=== PATIENT | female | born 1945 | race Caucasian/White ===

== ENCOUNTER → 2023-04-13 | Outpatient (CLI) | payer MEDICARE | LOC: M RAD 12:21 | PROVIDERS: ATTEND Registered Nurse Community Health | DX: Z12.2 Encounter for screening for malignant neoplasm of respiratory organs (principal); F17.210 Nicotine dependence, cigarettes, uncomplicated ==

== ENCOUNTER 2023-07-09 09:37 | Emergency (ER) | payer MEDICARE ==
[~2023-07-09] VITALS: Ht 157.5 cm; Wt 51.4 kg
[2023-07-09 11:45] LABS: VENOUS BASE EXCESS -0.3 (-2.0-2.0); VENOUS HCO3 25.4 MMOL/L (23.0-27.0); VENOUS O2 SATURATION 66.8 % (60.0-80.0); VENOUS PARTIAL PRESSURE CO2 45.4 mmHg (38.0-50.0); VENOUS PARTIAL PRESSURE O2 35.8 mmHg (30.0-50.0); VENOUS PH 7.366 UNITS (7.330-7.430); VENOUS STANDARD HCO3 23.5 MMOL/L; VENOUS TOTAL CO2 26.8 MMOL/L (24.0-28.0)
[2023-07-09 11:53] LABS: BASO # 0.1 10^3/uL (0.0-0.2); EOS % 0.4 % (0.0-3.0); HEMATOCRIT 42.2 % (36.0-47.0); HEMOGLOBIN 14.1 g/dl (12.0-15.5); LYMPH # 1.1 10^3/uL (1.5-5.0); LYMPH % 15.2 % (24.0-44.0); MEAN CORPUSCULAR HEMOGLOBIN 31.9 pg (27.0-33.0); MEAN CORPUSCULAR HGB CONC 33.4 g/dl (32.0-36.5); MEAN CORPUSCULAR VOLUME 95.5 fl (80.0-96.0); MONO # 0.6 10^3/uL (0.0-0.8); MONO % 8.4 % (2.0-8.0); NEUTROPHILS # 5.2 10^3/uL (1.5-8.5); NEUTROPHILS % 74.7 % (36.0-66.0); PLATELET COUNT, AUTOMATED 213 10^3/uL (150-450); RED BLOOD COUNT 4.42 10^6/uL (4.00-5.40)
[2023-07-09 12:15] LABS: OSMOLALITY SERUM 288 MOSM/KG (280-301)
[2023-07-09 12:19] LABS: ALBUMIN 3.4 G/DL (3.2-5.2); ALKALINE PHOSPHATASE 92 U/L (46-116); ALT/SGPT < 9 U/L (7.0-40); AST/SGOT 11 U/L (<34); BILIRUBIN,DIRECT 0.1 MG/DL (<0.4); BILIRUBIN,TOTAL 0.4 MG/DL (0.3-1.2); BLOOD UREA NITROGEN 8 MG/DL (9-23); CALCIUM LEVEL 9.1 MG/DL (8.3-10.6); CARBON DIOXIDE LEVEL 27 MMOL/L (20-31); CHLORIDE LEVEL 109 MMOL/L (98-107); CREATININE FOR GFR 0.49 MG/DL (0.55-1.30); GLOMERULAR FILTRATION RATE > 60.0 (>39); GLUCOSE, FASTING 98 MG/DL (74-106); SODIUM LEVEL 143 MMOL/L (136-145)
[2023-07-09 12:21] LABS: THYROID STIMULATING HORMONE 0.321 uIU/ML (0.55-4.78)
[2023-07-09 13:39] LABS: CK-MB VALUE MASS 1.1 NG/ML (<3.6)
[2023-07-09 13:41] LABS: MB/CK RELATIVE INDEX 1.74 (< OR =4)
[2023-07-09 13:58] LABS: CK-MB VALUE MASS 1.1 NG/ML (<3.6)
[2023-07-09 14:04] LABS: CPK CREATINE PHOSPHOKINASE 70 U/L (34-145); MB/CK RELATIVE INDEX 1.57 (< OR =4)
[2023-07-09] MEDS ORDERED: NS 500 ML IV ONE (14:05)
[2023-07-09 17:15] VITALS: BP 123/62; TEMP 99; O2SAT 97
== END 2023-07-09 17:28 | disposition home or self-care (01) ==
LOC: M ED 09:37
DX: R53.1 Weakness (principal); I10 Essential (primary) hypertension; E78.5 Hyperlipidemia, unspecified; E03.9 Hypothyroidism, unspecified; K21.9 Gastro-esophageal reflux disease without esophagitis; F17.290 Nicotine dependence, other tobacco product, uncomplicated

== ENCOUNTER → 2023-07-09 | Outpatient (REF) | payer MEDICARE | LOC: M LAB REF 11:58 | PROVIDERS: ATTEND Internal Medicine | DX: R19.4 Change in bowel habit (principal) ==

== ENCOUNTER → 2023-07-24 | Outpatient (CLI) | payer MEDICARE ==
[~2023-07-24] MED LIST: GASTROGRAFIN SOLUTION 30ML As Ordered ONE; ISOVUE-370 76% 100ML VIAL As Ordered ONE
== END ==
LOC: M RAD 08:57
PROVIDERS: ATTEND Internal Medicine
DX: R63.4 Abnormal weight loss (principal); R68.81 Early satiety; K59.00 Constipation, unspecified; K80.20 Calculus of gallbladder without cholecystitis without obstruction
CPT/HCPCS: 74177; Q9963; Q9967

== ENCOUNTER → 2023-08-04 | Outpatient (REF) | payer MEDICARE | LOC: M LAB REF 12:48 | PROVIDERS: ATTEND Internal Medicine | DX: N93.8 Other specified abnormal uterine and vaginal bleeding (principal) ==

== ENCOUNTER → 2023-08-10 | Outpatient (CLI) | payer MEDICARE | LOC: M WHC 12:07 | PROVIDERS: ATTEND Internal Medicine | DX: N93.8 Other specified abnormal uterine and vaginal bleeding (principal) ==

== ENCOUNTER → 2023-08-11 | Outpatient (REF) | payer OTHER, MEDICARE | LOC: M PLALAB 16:00 | PROVIDERS: ATTEND Obstetrics & Gynecology | DX: C53.9 Malignant neoplasm of cervix uteri, unspecified (principal) ==

== ENCOUNTER 2023-09-03 11:18 | Day surgery (SDC) | payer MEDICARE ==
[~2023-09-03] VITALS: Ht 160 cm; Wt 54.9 kg
[~2023-09-03 11:18] MED LIST changes: +BIOT1CAP2 PO; +CAPT1TAB17 PO; -GASTROGRAFIN SOLUTION 30ML As Ordered ONE; -ISOVUE-370 76% 100ML VIAL As Ordered ONE; +LEVO100T5 PO; +NS 1,000 ML IV ONE; +OMEP-173 PO; +POTA-141 PO; +PRES1CAP PO; +SIMV40TA20 PO
[2023-09-03 14:05] VITALS: TEMP 97.1
[2023-09-03 14:20] VITALS: BP 103/60; O2SAT 97
[2023-09-07] MEDS ORDERED: B-12100021 PO (08:14)
[2023-09-07] MEDS ORDERED: ATIV1TAB7 PO (10:05)
== END 2023-09-03 15:00 | disposition home or self-care (01) ==
LOC: M OPP 11:18
PROVIDERS: ATTEND Internal Medicine Gastroenterology
DX: R19.5 Other fecal abnormalities (principal); Z80.0 Family history of malignant neoplasm of digestive organs; K63.5 Polyp of colon; K57.30 Diverticulosis of large intestine without perforation or abscess without bleeding; K64.8 Other hemorrhoids; K22.70 Barrett's esophagus without dysplasia; K31.A19 Gastric intestinal metaplasia without dysplasia, unspecified site; K44.9 Diaphragmatic hernia without obstruction or gangrene; G47.30 Sleep apnea, unspecified; Z99.89 Dependence on other enabling machines and devices; F17.200 Nicotine dependence, unspecified, uncomplicated; Z79.02 Long term (current) use of antithrombotics/antiplatelets; Z79.83 Long term (current) use of bisphosphonates; Z79.899 Other long term (current) drug therapy; Z86.73 Personal history of transient ischemic attack (TIA), and cerebral infarction without residual deficits

== ENCOUNTER → 2023-09-04 | Outpatient (CLI) | payer MEDICARE ==
[~2023-09-04] MED LIST changes: +ATIV1TAB7 PO; +B-12100021 PO; -NS 1,000 ML IV ONE
== END ==
LOC: M PLARAD 13:11
PROVIDERS: ATTEND Internal Medicine
DX: D48.7 Neoplasm of uncertain behavior of other specified sites (principal); N93.8 Other specified abnormal uterine and vaginal bleeding; N85.8 Other specified noninflammatory disorders of uterus; K44.9 Diaphragmatic hernia without obstruction or gangrene

== ENCOUNTER → 2023-09-07 | Outpatient (CLI) | payer MEDICARE | LOC: M ONCR 08:16 | PROVIDERS: ATTEND General Practice | DX: C53.8 Malignant neoplasm of overlapping sites of cervix uteri (principal); F17.210 Nicotine dependence, cigarettes, uncomplicated; Z71.2 Person consulting for explanation of examination or test findings; Z79.899 Other long term (current) drug therapy; Z80.8 Family history of malignant neoplasm of other organs or systems ==

== ENCOUNTER → 2023-09-14 | Outpatient (CLI) | payer MEDICARE | LOC: M WHC 13:52 | PROVIDERS: ATTEND Internal Medicine Medical Oncology | DX: N63.14 Unspecified lump in the right breast, lower inner quadrant (principal); R59.0 Localized enlarged lymph nodes | CPT/HCPCS: 76641; 77066; G0279 ==

== ENCOUNTER 2023-09-16 10:29 | Outpatient (RCR) | payer MEDICARE | END 2023-09-29 | LOC: M ONCR 10:29 | PROVIDERS: ATTEND General Practice | DX: Z51.0 Encounter for antineoplastic radiation therapy (principal); C53.8 Malignant neoplasm of overlapping sites of cervix uteri ==

== ENCOUNTER → 2023-10-08 | Outpatient (CLI) | payer MEDICARE ==
[2023-10-08 11:32] VITALS: TEMP 96.8
[2023-10-08 12:35] VITALS: BP 106/64; O2SAT 98
== END ==
LOC: M WHCPRO 09:50
PROVIDERS: ATTEND Internal Medicine Medical Oncology
DX: N63.41 Unspecified lump in right breast, subareolar (principal)
CPT/HCPCS: 10035; 19083; 38505; 77065; 88300; 88305; A4648

== ENCOUNTER → 2023-10-12 | Outpatient (CLI) | payer MEDICARE | LOC: M PLARAD 11:03 | PROVIDERS: ATTEND General Practice | DX: C53.8 Malignant neoplasm of overlapping sites of cervix uteri (principal) | CPT/HCPCS: 78815; A9552 ==

== ENCOUNTER → 2023-10-13 | Outpatient (CLI) | payer MEDICARE ==
[~2023-10-13] VITALS: Ht 157.5 cm; Wt 53.2 kg
[~2023-10-13] MED LIST changes: +HEPARIN SOD (PORCINE) 5000UNITS/ML 1ML VIAL/SYRINGE As Ordered ONE; +LIDOCAINE 1% MDV 20ML VIAL As Ordered ONE; +LIDOCAINE W/EPINEPHRINE 1% 20ML VIAL As Ordered ONE; +MIDAZOLAM INJ 2MG/2ML VIAL As Ordered ONE; +NS 1,000 ML IV SCH; +ceFAZolin 2 GM/D5W 50 ML IV BAG As Ordered ONE; +ceFAZolin SOD 2 GM in IV 1 EA IV ONE; +fentaNYL 100 MCG/2 ML INJECTION As Ordered ONE
[2023-10-13 13:24] VITALS: TEMP 97.8
[2023-10-13 15:30] VITALS: BP 132/61; O2SAT 96
== END ==
LOC: M IRPRO 12:45
PROVIDERS: ATTEND Internal Medicine Medical Oncology
DX: C53.0 Malignant neoplasm of endocervix (principal)
CPT/HCPCS: 36571; 99152; 99153; J0690; J2250; J3010

== ENCOUNTER → 2023-10-20 | Outpatient (CLI) | payer MEDICARE ==
[~2023-10-20] MED LIST changes: -HEPARIN SOD (PORCINE) 5000UNITS/ML 1ML VIAL/SYRINGE As Ordered ONE; -LIDOCAINE 1% MDV 20ML VIAL As Ordered ONE; -LIDOCAINE W/EPINEPHRINE 1% 20ML VIAL As Ordered ONE; -MIDAZOLAM INJ 2MG/2ML VIAL As Ordered ONE; -NS 1,000 ML IV SCH; -ceFAZolin 2 GM/D5W 50 ML IV BAG As Ordered ONE; -ceFAZolin SOD 2 GM in IV 1 EA IV ONE; -fentaNYL 100 MCG/2 ML INJECTION As Ordered ONE
== END ==
LOC: M ONCM 09:13
PROVIDERS: ATTEND Dietitian, Registered
DX: C53.9 Malignant neoplasm of cervix uteri, unspecified (principal); Z68.21 Body mass index [BMI] 21.0-21.9, adult; Z85.3 Personal history of malignant neoplasm of breast; Z71.3 Dietary counseling and surveillance

== ENCOUNTER → 2023-10-29 | Outpatient (RCR) | payer MEDICARE | LOC: M ONCR 10-05 07:51 | PROVIDERS: ATTEND General Practice | DX: Z51.0 Encounter for antineoplastic radiation therapy (principal); C53.8 Malignant neoplasm of overlapping sites of cervix uteri ==

== ENCOUNTER → 2023-11-04 | Outpatient (CLI) | payer MEDICARE ==
[~2023-11-04] MED LIST changes: +E-Z-GAS II EFFERVESCENT PACKET (SODIUM BICARB./CITRIC ACID/SIMETHICONE) As Ordered ONE; +E-Z-HD 98% w/w 340GM SUSP BTL As Ordered ONE; +E-Z-PAQUE 96% w/w SUSP 176GM BTL As Ordered ONE; +ESSE250T PO
== END ==
LOC: M RAD 10:13
PROVIDERS: ATTEND Internal Medicine Gastroenterology
DX: K21.9 Gastro-esophageal reflux disease without esophagitis (principal); K44.9 Diaphragmatic hernia without obstruction or gangrene; K57.11 Diverticulosis of small intestine without perforation or abscess with bleeding

== ENCOUNTER 2023-11-18 07:47 | Outpatient (RCR) | payer MEDICARE ==
[~2023-11-18 07:47] MED LIST changes: -E-Z-GAS II EFFERVESCENT PACKET (SODIUM BICARB./CITRIC ACID/SIMETHICONE) As Ordered ONE; -E-Z-HD 98% w/w 340GM SUSP BTL As Ordered ONE; -E-Z-PAQUE 96% w/w SUSP 176GM BTL As Ordered ONE
== END 2023-11-29 ==
LOC: M ONCR 07:47
PROVIDERS: ATTEND General Practice
DX: Z51.0 Encounter for antineoplastic radiation therapy (principal); C53.8 Malignant neoplasm of overlapping sites of cervix uteri

== ENCOUNTER → 2023-12-03 | Outpatient (CLI) | payer MEDICARE ==
[~2023-12-03] MED LIST changes: +PROHANCE 279.3MG/ML 5ML VIAL ONE
== END ==
LOC: M PLAIMG 09:17
PROVIDERS: ATTEND General Practice
DX: C53.8 Malignant neoplasm of overlapping sites of cervix uteri (principal); K57.90 Diverticulosis of intestine, part unspecified, without perforation or abscess without bleeding
CPT/HCPCS: 72197; A9576

== ENCOUNTER → 2024-01-28 | Outpatient (CLI) | payer MEDICARE ==
[~2024-01-28] MED LIST changes: +ARIC1TAB PO; +DEXA4TA PO; -PROHANCE 279.3MG/ML 5ML VIAL ONE
== END ==
LOC: M ONCR 14:50
PROVIDERS: ATTEND General Practice
DX: C50.111 Malignant neoplasm of central portion of right female breast (principal); C53.8 Malignant neoplasm of overlapping sites of cervix uteri; F03.90 Unspecified dementia, unspecified severity, without behavioral disturbance, psychotic disturbance, mood disturbance, and anxiety; F17.210 Nicotine dependence, cigarettes, uncomplicated; Z71.2 Person consulting for explanation of examination or test findings; Z79.52 Long term (current) use of systemic steroids; Z79.899 Other long term (current) drug therapy; Z90.11 Acquired absence of right breast and nipple; Z92.21 Personal history of antineoplastic chemotherapy; Z92.29 Personal history of other drug therapy; Z92.3 Personal history of irradiation

== ENCOUNTER → 2024-02-11 | Outpatient (CLI) | payer MEDICARE | LOC: M WHC 12:26 | PROVIDERS: ATTEND Internal Medicine Medical Oncology | DX: C50.911 Malignant neoplasm of unspecified site of right female breast (principal); Z17.0 Estrogen receptor positive status [ER+]; Z79.811 Long term (current) use of aromatase inhibitors ==

== ENCOUNTER → 2024-02-15 | Outpatient (CLI) | payer MEDICARE | LOC: M PLARAD 09:08 | PROVIDERS: ATTEND General Practice | DX: C53.8 Malignant neoplasm of overlapping sites of cervix uteri (principal) | CPT/HCPCS: 78815; A9552 ==

== ENCOUNTER → 2024-02-18 | Outpatient (CLI) | payer MEDICARE | LOC: M ONCR 11:35 | PROVIDERS: ATTEND General Practice | DX: C50.111 Malignant neoplasm of central portion of right female breast (principal); C53.8 Malignant neoplasm of overlapping sites of cervix uteri; F17.210 Nicotine dependence, cigarettes, uncomplicated; Z71.2 Person consulting for explanation of examination or test findings; Z79.52 Long term (current) use of systemic steroids; Z79.899 Other long term (current) drug therapy; Z90.11 Acquired absence of right breast and nipple; Z92.21 Personal history of antineoplastic chemotherapy; Z92.3 Personal history of irradiation; Z92.29 Personal history of other drug therapy; Z98.890 Other specified postprocedural states ==

== ENCOUNTER 2024-03-07 10:41 | Inpatient (IN) | payer MEDICARE ==
[~2024-03-07] VITALS: Ht 160 cm; Wt 52.6 kg
[~2024-03-07 10:41] MED LIST changes: +CEPH500C PO
[2024-03-07] MEDS ORDERED: ARIC1TAB PO (11:33)
[2024-03-07] MEDS ORDERED: LORA1TAB23 PO (11:33)
[2024-03-07] MEDS ORDERED: HOME MED LIST COMPLETE! XX SCH (11:35)
[2024-03-07] MEDS ORDERED: SODIUM CHLORIDE 0.9% INJ 10 ML SYR IV PRN (11:40)
[2024-03-07] MEDS ORDERED: ISOVUE-370 76% 100ML VIAL As Ordered ONE (12:15)
[2024-03-07 12:58] LABS: INR 1.14; PARTIAL THROMBOPLASTIN TIME 24.9 SECONDS (24.8-34.2); PROTHROMBIN TIME 14.2 SECONDS (12.5-14.5)
[2024-03-07 13:18] LABS: LIPASE 17 U/L (12-53)
[2024-03-07 13:20] LABS: ALBUMIN 2.3 G/DL (3.2-5.2); ALKALINE PHOSPHATASE 72 U/L (46-116); ALT/SGPT 11 U/L (7.0-40); AST/SGOT 12 U/L (<34); BILIRUBIN,DIRECT 0.2 MG/DL (<0.4); BILIRUBIN,TOTAL 0.4 MG/DL (0.3-1.2); BLOOD UREA NITROGEN 15 MG/DL (9-23); CALCIUM LEVEL 7.4 MG/DL (8.3-10.6); CARBON DIOXIDE LEVEL 30 MMOL/L (20-31); CHLORIDE LEVEL 102 MMOL/L (98-107); CK-MB VALUE MASS < 1.0 NG/ML (<3.6); CREATININE FOR GFR 0.48 MG/DL (0.55-1.30); GLOMERULAR FILTRATION RATE > 60.0 (>39); GLUCOSE, FASTING 104 MG/DL (74-106); SODIUM LEVEL 138 MMOL/L (136-145); TOTAL PROTEIN 4.6 G/DL (5.7-8.2)
[2024-03-07 13:21] LABS: CPK CREATINE PHOSPHOKINASE 25 U/L (34-145)
[2024-03-07 13:22] LABS: FREE T4 0.94 NG/DL (0.89-1.76); THYROID STIMULATING HORMONE 4.204 uIU/ML (0.55-4.78)
[2024-03-07 13:33] LABS: HEMATOCRIT 24.5 % (36.0-47.0); HEMOGLOBIN 8.4 g/dl (12.0-15.5); LYMPH # 0.1 10^3/uL (1.5-5.0); MEAN CORPUSCULAR HEMOGLOBIN 34.6 pg (27.0-33.0); MEAN CORPUSCULAR HGB CONC 34.3 g/dl (32.0-36.5); MEAN CORPUSCULAR VOLUME 100.8 fl (80.0-96.0); MONO % 12.5 % (2.0-8.0); NEUTROPHILS % 12.5 % (36.0-66.0); RED BLOOD COUNT 2.43 10^6/uL (4.00-5.40)
[2024-03-07 13:40] LABS: WHITE BLOOD COUNT 0.1 10^3/uL (4.0-10.0)
[2024-03-07 13:41] LABS: PLATELET COUNT, AUTOMATED 28 10^3/uL (150-450)
[2024-03-07 13:48] LABS: ERYTHROCYTE SEDIMENTATION RATE 19 mm/hr (0-30)
[2024-03-07] MEDS: CEFEPIME HCL 2 GM in D5W MINI-BAG PLUS 50 ML IV ONE (13:59)
[2024-03-07] MEDS: NS 1,450 ML in IV 1 EA IV ONE (14:03)
[2024-03-07] MEDS ORDERED: MAALOX 30 ML SUSP *UDC PO PRN (15:10)
[2024-03-07] MEDS ORDERED: ACETAMINOPHEN TAB 650MG DOSE (2X325MG) PO PRN (15:10)
[2024-03-07] MEDS ORDERED: VANCOMYCIN HCL 1,000 MG, VIAL MATE ADAPTER 1 EACH in D5W 250 ML IV SCH (15:10)
[2024-03-07] MEDS: NS 1,000 ML IV SCH (15:34)
[2024-03-07] MEDS: FILGRASTIM 300MCG 0.5ML SYRINGE **SC ADMINISTRATION ONLY SC ONE (15:34)
[2024-03-07] MEDS ORDERED: AZITHROMYCIN INJ 500 MG, VIAL MATE ADAPTER 1 EACH in NS 250 ML IV SCH (15:50)
[2024-03-07] MEDS ORDERED: LORazepam 1 MG TAB PO PRN (16:00)
[2024-03-07 16:25] LABS: MAGNESIUM LEVEL 1.1 MG/DL (1.8-2.4)
[2024-03-07 16:39] LABS: PROCALCITONIN 0.06 ng/ml
[2024-03-07] MEDS: AZITHROMYCIN 250MG TABLET PO SCH (17:31)
[2024-03-07] MEDS: POTASSIUM CHLORIDE 10MEQ SR TABLET PO ONE ×2 (17:32→18:47)
[2024-03-07] MEDS: VANCOMYCIN HCL 1,000 MG, VIAL MATE ADAPTER 1 EACH in D5W 250 ML IV ONE (17:32)
[2024-03-07] MEDS: MAG SULF 1GM/100ML (MAG RUN) 1 GM in IV 1 EA IV SCH (18:47)
[2024-03-07 21:24] VITALS: BP 104/61; TEMP 100; O2SAT 93
[2024-03-07 22:51] VITALS: BP 185/77
[2024-03-07] MEDS: CEFEPIME HCL 2 GM in D5W MINI-BAG PLUS 50 ML IV SCH (23:02)
[2024-03-08] MEDS: VANCOMYCIN HCL 750 MG, VIAL MATE ADAPTER 1 EACH in D5W 250 ML IV SCH (00:33)
[2024-03-08 00:38] VITALS: BP 112/55; TEMP 98.9; O2SAT 96
[2024-03-08 04:00] VITALS: BP 103/60; TEMP 99.6; O2SAT 93
[2024-03-08 04:13] LABS: HEMATOCRIT 25.1 % (36.0-47.0); HEMOGLOBIN 8.5 g/dl (12.0-15.5); LYMPH % 66.7 % (24.0-44.0); MEAN CORPUSCULAR HGB CONC 33.9 g/dl (32.0-36.5); MEAN CORPUSCULAR VOLUME 100.4 fl (80.0-96.0); MONO % 16.7 % (2.0-8.0); NEUTROPHILS % 16.6 % (36.0-66.0)
[2024-03-08 04:20] LABS: WHITE BLOOD COUNT 0.1 10^3/uL (4.0-10.0)
[2024-03-08 04:22] LABS: PLATELET COUNT, AUTOMATED 26 10^3/uL (150-450)
[2024-03-08 05:36] LABS: ALBUMIN 2.1 G/DL (3.2-5.2); ALKALINE PHOSPHATASE 68 U/L (46-116); ALT/SGPT 10 U/L (7.0-40); AST/SGOT 13 U/L (<34); BILIRUBIN,TOTAL 0.3 MG/DL (0.3-1.2); BLOOD UREA NITROGEN 9 MG/DL (9-23); CALCIUM LEVEL 7.4 MG/DL (8.3-10.6); CARBON DIOXIDE LEVEL 28 MMOL/L (20-31); CHLORIDE LEVEL 102 MMOL/L (98-107); CREATININE FOR GFR 0.46 MG/DL (0.55-1.30); GLOMERULAR FILTRATION RATE > 60.0 (>39); GLUCOSE, FASTING 119 MG/DL (74-106); MAGNESIUM LEVEL 1.9 MG/DL (1.8-2.4); POTASSIUM SERUM 3.5 MMOL/L (3.5-5.1); SODIUM LEVEL 134 MMOL/L (136-145); TOTAL PROTEIN 4.2 G/DL (5.7-8.2)
[2024-03-08 08:25] VITALS: BP 105/58; TEMP 99.4; O2SAT 96
[2024-03-08] MEDS: SIMVASTATIN 40 MG TAB PO SCH (10:32)
[2024-03-08] MEDS: OMEPRAZOLE 20MG CAP PO SCH (10:33)
[2024-03-08] MEDS: DONEPEZIL 5 MG TAB PO SCH (10:33)
[2024-03-08] MEDS: FILGRASTIM 300MCG 0.5ML SYRINGE **SC ADMINISTRATION ONLY SC SCH (11:24)
[2024-03-08 12:00] VITALS: BP 85/60; TEMP 98.3; O2SAT 96
[2024-03-08] MEDS: VANCOMYCIN HCL 500 MG in D5W MINI-BAG PLUS 100 ML IV ONE (15:52)
[2024-03-08 16:00] VITALS: BP 105/48; TEMP 98.8; O2SAT 98
[2024-03-08 20:04] VITALS: BP 98/49; TEMP 97.5; O2SAT 92
[2024-03-09 00:01] VITALS: BP 99/55; TEMP 97.5; O2SAT 92
[2024-03-09 04:09] VITALS: BP 100/56; TEMP 97.1; O2SAT 98
[2024-03-09 05:10] LABS: BASO % 7.7 % (0.0-1.0); HEMATOCRIT 24.4 % (36.0-47.0); HEMOGLOBIN 8.2 g/dl (12.0-15.5); LYMPH # 0.1 10^3/uL (1.5-5.0); LYMPH % 46.2 % (24.0-44.0); MEAN CORPUSCULAR HEMOGLOBIN 33.7 pg (27.0-33.0); MEAN CORPUSCULAR HGB CONC 33.6 g/dl (32.0-36.5); MEAN CORPUSCULAR VOLUME 100.4 fl (80.0-96.0); MONO % 30.8 % (2.0-8.0); NEUTROPHILS % 15.3 % (36.0-66.0); RED BLOOD COUNT 2.43 10^6/uL (4.00-5.40)
[2024-03-09 05:14] LABS: WHITE BLOOD COUNT 0.1 10^3/uL (4.0-10.0)
[2024-03-09 05:16] LABS: PLATELET COUNT, AUTOMATED 21 10^3/uL (150-450)
[2024-03-09 05:41] LABS: ALBUMIN 1.8 G/DL (3.2-5.2); ALKALINE PHOSPHATASE 59 U/L (46-116); ALT/SGPT 10 U/L (7.0-40); AST/SGOT 11 U/L (<34); BILIRUBIN,TOTAL 0.3 MG/DL (0.3-1.2); BLOOD UREA NITROGEN < 5 MG/DL (9-23); CALCIUM LEVEL 7.3 MG/DL (8.3-10.6); CARBON DIOXIDE LEVEL 27 MMOL/L (20-31); CHLORIDE LEVEL 110 MMOL/L (98-107); CREATININE FOR GFR 0.43 MG/DL (0.55-1.30); GLOMERULAR FILTRATION RATE > 60.0 (>39); GLUCOSE, FASTING 96 MG/DL (74-106); MAGNESIUM LEVEL 1.6 MG/DL (1.8-2.4); POTASSIUM SERUM 3.4 MMOL/L (3.5-5.1); SODIUM LEVEL 141 MMOL/L (136-145)
[2024-03-09 08:13] VITALS: BP 107/53; TEMP 97.6; O2SAT 98
[2024-03-09] MEDS: cefTRIAXone SOD 2 GM in D5W MINI-BAG PLUS 50 ML IV SCH (12:22)
[2024-03-09 16:00] VITALS: BP 117/60; TEMP 97.7; O2SAT 97
[2024-03-09 20:55] VITALS: BP 112/66; TEMP 97.9; O2SAT 96
[2024-03-10] VITALS (7 sets, daily range): BP systolic 80–104; BP diastolic 48–60; TEMP 97.7–98.8; O2SAT 94–100
[2024-03-10 06:24] LABS: BASO % 3.6 % (0.0-1.0); EOS % 1.8 % (0.0-3.0); HEMATOCRIT 25.5 % (36.0-47.0); HEMOGLOBIN 8.7 g/dl (12.0-15.5); LYMPH # 0.1 10^3/uL (1.5-5.0); LYMPH % 17.9 % (24.0-44.0); MEAN CORPUSCULAR HEMOGLOBIN 34.1 pg (27.0-33.0); MEAN CORPUSCULAR HGB CONC 34.1 g/dl (32.0-36.5); MONO # 0.2 10^3/uL (0.0-0.8); MONO % 41.1 % (2.0-8.0); NEUTROPHILS % 33.8 % (36.0-66.0); RED BLOOD COUNT 2.55 10^6/uL (4.00-5.40)
[2024-03-10 06:38] LABS: NEUTROPHILS # 0.2 10^3/uL (1.5-8.5)
[2024-03-10 06:40] LABS: WHITE BLOOD COUNT 0.6 10^3/uL (4.0-10.0)
[2024-03-10 06:41] LABS: PLATELET COUNT, AUTOMATED 33 10^3/uL (150-450)
[2024-03-10 06:49] LABS: ALBUMIN 1.9 G/DL (3.2-5.2); ALKALINE PHOSPHATASE 62 U/L (46-116); ALT/SGPT 14 U/L (7.0-40); AST/SGOT 10 U/L (<34); BILIRUBIN,TOTAL 0.2 MG/DL (0.3-1.2); BLOOD UREA NITROGEN 7 MG/DL (9-23); CALCIUM LEVEL 7.8 MG/DL (8.3-10.6); CARBON DIOXIDE LEVEL 26 MMOL/L (20-31); CHLORIDE LEVEL 107 MMOL/L (98-107); CREATININE FOR GFR 0.43 MG/DL (0.55-1.30); GLOMERULAR FILTRATION RATE > 60.0 (>39); GLUCOSE, FASTING 117 MG/DL (74-106); MAGNESIUM LEVEL 1.2 MG/DL (1.8-2.4); POTASSIUM SERUM 3.3 MMOL/L (3.5-5.1); SODIUM LEVEL 140 MMOL/L (136-145); TOTAL PROTEIN 4.2 G/DL (5.7-8.2)
[2024-03-10] MEDS: NS 1,000 ML IV ONE (07:35)
[2024-03-10] MEDS: POTASSIUM CHLORIDE 10MEQ SR TABLET PO SCH (08:56)
[2024-03-10] MEDS: MAG SULF 1GM/100ML (MAG RUN) 1 GM in IV 1 EA IV SCH (08:56)
[2024-03-10] MEDS: MAGNESIUM GLUCONATE 500 MG TAB PO SCH (09:57)
[2024-03-11 00:38] VITALS: BP 100/62; TEMP 98.5; O2SAT 96
[2024-03-11 04:05] VITALS: BP 103/59; TEMP 98; O2SAT 92
[2024-03-11 05:50] LABS: HEMATOCRIT 25.5 % (36.0-47.0); HEMOGLOBIN 8.6 g/dl (12.0-15.5); MEAN CORPUSCULAR HGB CONC 33.7 g/dl (32.0-36.5); MEAN CORPUSCULAR VOLUME 100.8 fl (80.0-96.0); RED BLOOD COUNT 2.53 10^6/uL (4.00-5.40); WHITE BLOOD COUNT 3.7 10^3/uL (4.0-10.0)
[2024-03-11 05:57] LABS: PLATELET COUNT, AUTOMATED 48 10^3/uL (150-450)
[2024-03-11 06:10] LABS: ALKALINE PHOSPHATASE 65 U/L (46-116); ALT/SGPT 15 U/L (7.0-40); AST/SGOT 10 U/L (<34); BILIRUBIN,TOTAL 0.2 MG/DL (0.3-1.2); BLOOD UREA NITROGEN 8 MG/DL (9-23); CALCIUM LEVEL 7.8 MG/DL (8.3-10.6); CARBON DIOXIDE LEVEL 28 MMOL/L (20-31); CHLORIDE LEVEL 109 MMOL/L (98-107); CREATININE FOR GFR 0.42 MG/DL (0.55-1.30); GLOMERULAR FILTRATION RATE > 60.0 (>39); GLUCOSE, FASTING 99 MG/DL (74-106); MAGNESIUM LEVEL 1.4 MG/DL (1.8-2.4); POTASSIUM SERUM 3.8 MMOL/L (3.5-5.1); SODIUM LEVEL 141 MMOL/L (136-145); TOTAL PROTEIN 4.3 G/DL (5.7-8.2)
[2024-03-11] MEDS: MAG SULF 1GM/100ML (MAG RUN) 1 GM in IV 1 EA IV SCH (06:32)
[2024-03-11 06:39] LABS: ANISOCYTOSIS 1+; ATYPICAL LYMPH 2 % (0-5); LYMPHOCYTES 11 % (16-44); METAMYELOCYTES 3 % (0-0); MONOCYTES 20 % (0-5); MYELOCYTES 1 % (0-0); NEUTROPHILS 57 % (28-66); PLATELET ESTIMATE MARKED DECREASE (NORMAL)
[2024-03-11 08:20] VITALS: BP 90/56; TEMP 97.8; O2SAT 91
[2024-03-11 11:35] VITALS: BP 92/58; TEMP 97.6; O2SAT 95
[2024-03-11 19:23] VITALS: BP 99/54; TEMP 98.5; O2SAT 92
[2024-03-11 21:23] VITALS: BP 111/56; TEMP 98.1; O2SAT 96
[2024-03-12 06:36] VITALS: BP 111/55; TEMP 98.1; O2SAT 97
[2024-03-12 07:15] LABS: BASO # 0.1 10^3/uL (0.0-0.2); BASO % 0.3 % (0.0-1.0); EOS % 0.2 % (0.0-3.0); HEMOGLOBIN 9.3 g/dl (12.0-15.5); LYMPH # 0.3 10^3/uL (1.5-5.0); LYMPH % 1.5 % (24.0-44.0); MEAN CORPUSCULAR HEMOGLOBIN 34.4 pg (27.0-33.0); MEAN CORPUSCULAR HGB CONC 33.2 g/dl (32.0-36.5); MEAN CORPUSCULAR VOLUME 103.7 fl (80.0-96.0); MONO % 13.7 % (2.0-8.0); NEUTROPHILS # 13.2 10^3/uL (1.5-8.5); NEUTROPHILS % 67.1 % (36.0-66.0); WHITE BLOOD COUNT 19.6 10^3/uL (4.0-10.0)
[2024-03-12 07:16] LABS: MONO # 2.7 10^3/uL (0.0-0.8); PLATELET COUNT, AUTOMATED 89 10^3/uL (150-450)
[2024-03-12 07:40] LABS: ALKALINE PHOSPHATASE 87 U/L (46-116); ALT/SGPT 13 U/L (7.0-40); AST/SGOT 11 U/L (<34); BILIRUBIN,TOTAL 0.2 MG/DL (0.3-1.2); BLOOD UREA NITROGEN 7 MG/DL (9-23); CALCIUM LEVEL 8.5 MG/DL (8.3-10.6); CARBON DIOXIDE LEVEL 30 MMOL/L (20-31); CHLORIDE LEVEL 106 MMOL/L (98-107); CREATININE FOR GFR 0.48 MG/DL (0.55-1.30); GLOMERULAR FILTRATION RATE > 60.0 (>39); GLUCOSE, FASTING 82 MG/DL (74-106); MAGNESIUM LEVEL 1.8 MG/DL (1.8-2.4); POTASSIUM SERUM 4.3 MMOL/L (3.5-5.1); SODIUM LEVEL 140 MMOL/L (136-145); TOTAL PROTEIN 4.6 G/DL (5.7-8.2)
[2024-03-12] MEDS ORDERED: PROBCAP14 PO (08:09)
[2024-03-12] MEDS ORDERED: CEFD1CAP9 PO (08:09)
== END 2024-03-12 10:50 | disposition home or self-care (01) | DRG 809 ==
LOC: EDBD 10:41 → M ED 11:04 → OBSVTOIN 15:06 → M ED INP 15:06 → UNDOADMOB 15:37 → M ED INP 15:37 → M PCU 21:33 → M ED INP 21:33 → M MS5PR 03-11 21:02
PROVIDERS: ADMIT Internal Medicine; ATTEND Internal Medicine Nephrology
DX: D70.9 Neutropenia, unspecified (principal); R78.81 Bacteremia; D61.810 Antineoplastic chemotherapy induced pancytopenia; F03.90 Unspecified dementia, unspecified severity, without behavioral disturbance, psychotic disturbance, mood disturbance, and anxiety; C50.911 Malignant neoplasm of unspecified site of right female breast; I10 Essential (primary) hypertension; E87.6 Hypokalemia; K21.9 Gastro-esophageal reflux disease without esophagitis; R19.7 Diarrhea, unspecified; E78.5 Hyperlipidemia, unspecified; K44.9 Diaphragmatic hernia without obstruction or gangrene; I34.0 Nonrheumatic mitral (valve) insufficiency; J43.9 Emphysema, unspecified; Z92.21 Personal history of antineoplastic chemotherapy; Z82.3 Family history of stroke; F41.9 Anxiety disorder, unspecified; Z96.20 Presence of otological and audiological implant, unspecified; C53.9 Malignant neoplasm of cervix uteri, unspecified; Z79.899 Other long term (current) drug therapy

== ENCOUNTER → 2024-04-01 | Outpatient (REF) | payer MEDICARE ==
[~2024-04-01] MED LIST changes: +CEFD1CAP9 PO; +LORA1TAB23 PO; +PROBCAP14 PO
[2024-04-01 18:28] LABS: EOSINOPHILS 1 % (0-3); MONOCYTES 2 % (0-5); NEUTROPHILS 90 % (28-66)
[2024-04-01 18:29] LABS: TOXIC GRANULATION 1+
[2024-04-01 18:31] LABS: PLATELET ESTIMATE NORMAL (NORMAL)
== END ==
LOC: M LAB REF 16:20
PROVIDERS: ATTEND Internal Medicine
DX: D72.9 Disorder of white blood cells, unspecified (principal); R06.02 Shortness of breath; R22.41 Localized swelling, mass and lump, right lower limb

== ENCOUNTER → 2024-04-01 | Outpatient (CLI) | payer MEDICARE | LOC: M WHC 14:36 | PROVIDERS: ATTEND Internal Medicine | DX: R22.41 Localized swelling, mass and lump, right lower limb (principal); D72.9 Disorder of white blood cells, unspecified; R06.02 Shortness of breath ==

== ENCOUNTER → 2024-04-18 | Outpatient (REF) | payer MEDICARE ==
[2024-04-18 18:25] LABS: C REACTIVE PROTEIN QUANTITATIV 2.6 MG/DL (<1.0)
[2024-04-18 18:26] LABS: PERCENT SATURATION 13.7 % (13.2-45.0)
[2024-04-18 18:27] LABS: FERRITIN 253.7 NG/ML (7.3-270.7)
== END ==
LOC: M LAB REF 16:13
PROVIDERS: ATTEND Internal Medicine
DX: R53.1 Weakness (principal); D50.9 Iron deficiency anemia, unspecified; T81.41XA Infection following a procedure, superficial incisional surgical site, initial encounter

== ENCOUNTER → 2024-05-19 | Outpatient (CLI) | payer MEDICARE | LOC: M ONCR 09:03 → EEVIPCON 10:00 | PROVIDERS: ATTEND General Practice | DX: C50.911 Malignant neoplasm of unspecified site of right female breast (principal); Z85.41 Personal history of malignant neoplasm of cervix uteri; F17.210 Nicotine dependence, cigarettes, uncomplicated; Z79.899 Other long term (current) drug therapy; Z71.2 Person consulting for explanation of examination or test findings; Z92.21 Personal history of antineoplastic chemotherapy; Z92.3 Personal history of irradiation; Z92.29 Personal history of other drug therapy; Z90.11 Acquired absence of right breast and nipple ==

== ENCOUNTER → 2024-05-23 | Outpatient (CLI) | payer MEDICARE | LOC: M PLAIMG 10:43 | PROVIDERS: ATTEND Internal Medicine | DX: R06.02 Shortness of breath (principal) ==

== ENCOUNTER → 2024-06-03 | Outpatient (CLI) | payer MEDICARE ==
[~2024-06-03] MED LIST changes: +PROHANCE 279.3MG/ML 5ML VIAL ONE
== END ==
LOC: M PLAIMG 09:14
PROVIDERS: ATTEND Internal Medicine
DX: C50.111 Malignant neoplasm of central portion of right female breast (principal); R41.3 Other amnesia; R90.89 Other abnormal findings on diagnostic imaging of central nervous system
CPT/HCPCS: 70553; A9576

== ENCOUNTER → 2024-06-14 | Outpatient (REF) | payer MEDICARE ==
[~2024-06-14] MED LIST changes: -PROHANCE 279.3MG/ML 5ML VIAL ONE
== END ==
LOC: M LAB REF 12:48
PROVIDERS: ATTEND Internal Medicine
DX: D64.9 Anemia, unspecified (principal)

== ENCOUNTER → 2024-06-14 | Outpatient (REF) | payer MEDICARE ==
[2024-06-15 13:44] LABS: EOSINOPHILS 3 % (0-3); LYMPHOCYTES 5 % (16-44); MONOCYTES 5 % (0-5); NEUTROPHILS 84 % (28-66)
[2024-06-15 13:45] LABS: ANISOCYTOSIS 1+
[2024-06-15 13:46] LABS: PLATELET ESTIMATE NORMAL (NORMAL)
== END ==
LOC: M LAB REF 12:31
PROVIDERS: ATTEND Internal Medicine
DX: D72.9 Disorder of white blood cells, unspecified (principal)

== ENCOUNTER → 2024-06-21 | Outpatient (CLI) | payer MEDICARE | LOC: M ONCR 10:14 | PROVIDERS: ATTEND General Practice | DX: C50.111 Malignant neoplasm of central portion of right female breast (principal); S21.109A Unspecified open wound of unspecified front wall of thorax without penetration into thoracic cavity, initial encounter; Z85.42 Personal history of malignant neoplasm of other parts of uterus; F17.210 Nicotine dependence, cigarettes, uncomplicated; Z79.899 Other long term (current) drug therapy; Z92.21 Personal history of antineoplastic chemotherapy; Z92.3 Personal history of irradiation; Z90.11 Acquired absence of right breast and nipple; Z79.811 Long term (current) use of aromatase inhibitors ==

== ENCOUNTER → 2024-07-29 | Outpatient (CLI) | payer MEDICARE | LOC: M ONCR 10:10 | PROVIDERS: ATTEND General Practice | DX: C50.111 Malignant neoplasm of central portion of right female breast (principal); S21.109A Unspecified open wound of unspecified front wall of thorax without penetration into thoracic cavity, initial encounter; Z85.42 Personal history of malignant neoplasm of other parts of uterus; F17.210 Nicotine dependence, cigarettes, uncomplicated; Z71.6 Tobacco abuse counseling; Z79.899 Other long term (current) drug therapy; Z90.11 Acquired absence of right breast and nipple; Z92.21 Personal history of antineoplastic chemotherapy; Z92.3 Personal history of irradiation | CPT/HCPCS: 99406; G0463 ==

== ENCOUNTER → 2024-08-30 | Outpatient (CLI) | payer MEDICARE ==
[~2024-08-30] MED LIST changes: +GASTROGRAFIN SOLUTION 30ML As Ordered ONE; +ISOVUE-370 76% 100ML VIAL As Ordered ONE
== END ==
LOC: M RAD 08:29
PROVIDERS: ATTEND General Practice
DX: C53.8 Malignant neoplasm of overlapping sites of cervix uteri (principal); J98.11 Atelectasis; J43.0 Unilateral pulmonary emphysema [MacLeod's syndrome]; K44.9 Diaphragmatic hernia without obstruction or gangrene; K57.30 Diverticulosis of large intestine without perforation or abscess without bleeding; K80.20 Calculus of gallbladder without cholecystitis without obstruction
CPT/HCPCS: 71260; 74177; Q9963; Q9967

== ENCOUNTER → 2024-09-06 | Outpatient (CLI) | payer MEDICARE ==
[~2024-09-06] MED LIST changes: -GASTROGRAFIN SOLUTION 30ML As Ordered ONE; -ISOVUE-370 76% 100ML VIAL As Ordered ONE
== END ==
LOC: M ONCR 10:22
PROVIDERS: ATTEND General Practice
DX: C53.9 Malignant neoplasm of cervix uteri, unspecified (principal); C50.111 Malignant neoplasm of central portion of right female breast; F17.210 Nicotine dependence, cigarettes, uncomplicated; F01.50 Vascular dementia, unspecified severity, without behavioral disturbance, psychotic disturbance, mood disturbance, and anxiety; Z79.811 Long term (current) use of aromatase inhibitors; Z79.899 Other long term (current) drug therapy; Z92.21 Personal history of antineoplastic chemotherapy; Z92.3 Personal history of irradiation; Z90.11 Acquired absence of right breast and nipple

== ENCOUNTER → 2025-03-23 | Outpatient (REF) | payer MEDICARE ==
[2025-03-23 12:40] LABS: EOSINOPHILS 2 % (0-3); LYMPHOCYTES 2 % (16-44); MONOCYTES 8 % (0-5); NEUTROPHILS 88 % (28-66)
[2025-03-23 12:41] LABS: ANISOCYTOSIS 1+; PLATELET ESTIMATE NORMAL (NORMAL)
== END ==
LOC: M LAB REF 11:43
PROVIDERS: ATTEND Internal Medicine
DX: R41.3 Other amnesia (principal); D72.9 Disorder of white blood cells, unspecified

== ENCOUNTER → 2025-03-30 | Outpatient (CLI) | payer MEDICARE ==
[~2025-03-30] MED LIST changes: +ANAS1TAB2 PO; +ASPI81TA26 PO; +PROHANCE 279.3MG/ML 5ML VIAL ONE
== END ==
LOC: M PLAIMG 11:36
PROVIDERS: ATTEND Internal Medicine
DX: G93.89 Other specified disorders of brain (principal); R41.3 Other amnesia; R26.81 Unsteadiness on feet; R53.1 Weakness; I63.9 Cerebral infarction, unspecified
CPT/HCPCS: 70544; 70553; A9576

== ENCOUNTER → 2025-04-05 | Outpatient (CLI) | payer MEDICARE ==
[~2025-04-05] MED LIST changes: -PROHANCE 279.3MG/ML 5ML VIAL ONE
== END ==
LOC: M PLAIMG 09:23
PROVIDERS: ATTEND General Practice
DX: C53.9 Malignant neoplasm of cervix uteri, unspecified (principal); K80.20 Calculus of gallbladder without cholecystitis without obstruction; K44.9 Diaphragmatic hernia without obstruction or gangrene; K57.30 Diverticulosis of large intestine without perforation or abscess without bleeding; Z95.828 Presence of other vascular implants and grafts; J43.9 Emphysema, unspecified; J84.9 Interstitial pulmonary disease, unspecified

== ENCOUNTER → 2025-04-07 | Outpatient (CLI) | payer MEDICARE | LOC: M ONCR 10:22 | PROVIDERS: ATTEND General Practice | DX: C53.8 Malignant neoplasm of overlapping sites of cervix uteri (principal); C50.111 Malignant neoplasm of central portion of right female breast; Z17.0 Estrogen receptor positive status [ER+]; Z17.21 Progesterone receptor positive status; Z17.32 Human epidermal growth factor receptor 2 negative status; F17.210 Nicotine dependence, cigarettes, uncomplicated; Z92.21 Personal history of antineoplastic chemotherapy; Z92.3 Personal history of irradiation; Z90.11 Acquired absence of right breast and nipple; Z79.811 Long term (current) use of aromatase inhibitors; Z79.82 Long term (current) use of aspirin; Z79.899 Other long term (current) drug therapy ==

== ENCOUNTER → 2025-06-30 | Outpatient (REF) | payer MEDICARE ==
[~2025-06-30] MED LIST changes: -ESSE250T PO; +MAGN250T17 PO
== END ==
LOC: M LAB REF 13:53
PROVIDERS: ATTEND Internal Medicine
DX: R41.3 Other amnesia (principal)

== ENCOUNTER → 2025-07-13 | Outpatient (CLI) | payer MEDICARE | LOC: M ONCR 10:31 | PROVIDERS: ATTEND General Practice | DX: C53.8 Malignant neoplasm of overlapping sites of cervix uteri (principal); C50.111 Malignant neoplasm of central portion of right female breast; F17.210 Nicotine dependence, cigarettes, uncomplicated; F01.50 Vascular dementia, unspecified severity, without behavioral disturbance, psychotic disturbance, mood disturbance, and anxiety; Z79.811 Long term (current) use of aromatase inhibitors; Z79.899 Other long term (current) drug therapy; Z92.21 Personal history of antineoplastic chemotherapy; Z92.3 Personal history of irradiation ==